=== PATIENT | female | born 1980 | race Two or more races ===

== ENCOUNTER 2022-06-19 10:10 | Inpatient (IN) | payer OTHER, SELFPAY ==
--- NOTE | ~2022-06-19 | FL_ITS ---
EXAMINATION: XR FLUOROSCOPY WITH IMAGES CLINICAL INFORMATION: Cystoscopy and right-sided ureteroscopy COMPARISON: CT abdomen/pelvis from 06/19/2022 TECHNIQUE: Fluoroscopy Time: 0.5 minutes. Cumulative Dose: 12.2 mGy. DAP: 0.212 mGym2. FL/FL guidance in OR FINDINGS AND IMPRESSION: This report is provided to document use of fluoroscopic imaging equipment during urologic procedures. The final images show deployment of a right ureteral stent.
--- NOTE | ~2022-06-19 | CT_ITS ---
EXAMINATION: CT ABDOMEN AND PELVIS WITHOUT CONTRAST CLINICAL INFORMATION: Severe right flank pain COMPARISON: None available. TECHNIQUE: Multidetector volumetric imaging was performed from the superior aspect of the liver through the pubic symphysis. Sagittal and coronal reformatted images were obtained on the technologist's workstation. This CT examination was performed using dose optimization techniques as appropriate, variously including the following: *Automated exposure control *Adjustment of mA and/or kV according to patient size (this includes techniques or standardized protocols for targeted exams where dose is matched to indication/reason for exam; i.e. extremities or head) *Use of iterative reconstruction technique DLP: 826 mGy-cm FINDINGS: LUNG BASES: The visualized lung bases are unremarkable. Heart normal size. No pleural or pericardial effusion. LIVER, GALLBLADDER, AND BILIARY TREE: There is diffuse fatty infiltration of the liver. Hepatomegaly is present with vertical span of 23 cm. No focal mass or intrahepatic bile duct dilatation is seen. Patient status post cholecystectomy. PANCREAS: Unremarkable. No mass or peripancreatic inflammatory change. SPLEEN: Unremarkable. ADRENAL GLANDS: Unremarkable. KIDNEYS AND URETERS: Right kidney: There is moderate hydronephrosis present with hydroureter down to the right distal ureter where there is a 9 mm calculus there is some periureteral fat stranding present. No significant perinephric stranding is noted. No focal mass. Left kidney: No hydronephrosis or hydroureter. No left renal calculi identified. No focal mass. No significant perinephric stranding. BLADDER: Unremarkable. GASTROINTESTINAL TRACT: No dilated loops of large or small bowel are evident. No free air or free fluid is seen. No pericolonic inflammatory change. The appendix appears unremarkable. ABDOMINAL WALL: No significant hernia is appreciated. LYMPH NODES: No lymphadenopathy appreciated. VASCULAR: Unremarkable. PELVIC VISCERA: Unremarkable. OSSEOUS STRUCTURES: No suspicious acute findings identified. CT/CT abdomen pelvis wo IV con IMPRESSION: Distal right ureteral 9 mm obstructing calculus with moderate right hydronephrosis and hydroureter. Diffuse fatty infiltration of the liver with hepatomegaly. Fleischner guidelines were followed.
[2022-06-19 10:38] VITALS: BP 166/74; PULSE 88; RESP 18; TEMP 36.4; O2SAT 96; BMI 36.6
[2022-06-19] MEDS: Ketorolac Tromethamine 30 MG/ML VIAL IVPUSH (11:02)
[2022-06-19] MEDS: Morphine Sulfate 4 MG/ML CARTRIDGE IVPUSH (11:02)
[2022-06-19] MEDS: 0.9 % Sodium Chloride 1,000 ML 999 ML IVCONT (11:02)
[2022-06-19] MEDS: ondansetron HCL 4 MG/2 ML VIAL IVPUSH (11:02)
--- NOTE | 2022-06-19 11:05 | PC.NURSE ---
20G IV placed right AC, medicated per provider for 10/10 pain, pt is having difficulty lying still due to pain, pt pending CT scan.
[2022-06-19 11:07] LABS: Basophils Absolute Auto 0.1 X10*3/uL (0.0-0.2); Basophils Percent Auto 0.6 % (0-2); Eosinophils Absolute Auto 0.1 X10*3/uL (0.0-0.4); Eosinophils Percent Auto 1.2 % (0-4); Hematocrit 42.9 % (37.0-47.0); Hemoglobin 14.3 g/dl (12.0-16.0); Imm Gran Abs Auto 0.05 X10*3/uL (0.00-0.03); Imm Gran Pct Auto 0.5 % (0.0-0.4); Lymphocytes Absolute Auto 5.2 X10*3/uL (1.2-4.9); Lymphocytes Percent Auto 48.1 % (20-40); MANUAL DIFF FLAG SCAN; Mean Corpuscular HGB Conc 33.3 g/dl (31.0-35.0); Mean Corpuscular Hemoglobin 29.4 pg (27.0-33.0); Mean Corpuscular Volume 88.3 fL (80.0-98.0); Mean Platelet Volume 10.3 fL (9.4-12.3); Monocytes Absolute Auto 0.7 X10*3/uL (0.1-1.2); Monocytes Percent Auto 6.3 % (2-11); Neutrophils Absolute Auto 4.7 x10*3/uL (2.0-8.3); Neutrophils Percent Auto 43.3 % (45-73); Platelet Count 272 X10*3/uL (160-400); Red Blood Count 4.86 X10*6/uL (4.20-5.50); Red Cell Distribution Width 12.3 % (11.0-16.0); SCAN SMEAR FLAG 1; White Blood Count 10.8 X10*3/uL (4.8-10.8)
--- NOTE | 2022-06-19 11:14 | ED_ITS ---
HPI - General Adult General Chief complaint: Back Pain/Injury Stated complaint: lower back pain/ abd pain Time Seen by Provider: 06/19/22 10:41 Source: patient Mode of arrival: ambulatory Limitations: no limitations History of Present Illness HPI narrative: Patient is a 42yo female presenting for suprapubic and lower back pain that began yesterday night. Patient stated that she was initially experiencing urinary frequency and urgency which made her think she may have a UTI so she increased her water intake. She stated that she woke up this morning with left lower back pain that intensified and shifted to right sided pain along with b/l suprapubic pain and pressure that radiates to her groin. Patient stated that she is still having urinary frequency and urgency but when she tries to pee, there is minimal urine. Patient is unsure if there is any blood in her urine because she is currently on her period. Veronika stated that the pain feels like I have to push out a baby . She denies possibility of because she has had a tubal ligation and has been abstinent for a year. Patient denies associated symptoms including fever, weakness, fatigue, dizziness, headache, chest pain, nausea, vomiting, diarrhea, urinary retention or incontinence. complaint: back/abdominal pain Onset (ago): day(s) (1) Location: back and abdomen Radiation: other (groin) Severity: severe Severity scale (1-10): 10 Quality: sharp Pain Consistency: constant Exacerbating factors: movement Associated symptoms: denies other symptoms Treatments prior to arrival: none Related Data Allergies Allergy/AdvReac Type Severity Reaction Status Date / Time No Known Allergies Allergy Verified 06/19/22 10:41 Review of Systems Review of Systems: Yes all other systems are reviewed and are negative [facility] Social History Social History Advance Directives: No Physical Exam ED Vital Signs: Vital Signs - 24 hr 06/19/22 10:38 Temperature 97.6 F Pulse Rate 88 Respiratory Rate 18 Blood Pressure 166/74 H Pulse Oximetry 96 Oxygen Delivery Method Room Air BMI result Body Mass Index 36.6 Appearance: Alert. Oriented X3. Appears very uncomfortable Head: normocephalic, atraumatic. Neck: Normal inspection. Neck supple. CVS: Normal heart rate and rhythm. Respiratory: No respiratory distress. Breath sounds normal. Abdomen: Soft but tender in RLQ and LLQ. +BS x4 : Right CVA tenderness to palpation. Bilateral suprapubic tenderness to palpation Skin: Skin warm and dry. Normal skin color. Normal skin turgor. No rashes. Extremities: No lower extremity edema. No joint swelling. Neuro/psych: Oriented X 3. No motor deficit. No sensory deficit. Normal speech and cognition. Course Reevaluation(s) Reevaluation #1: pain significantly improved per patient. CT showed 9mm distal ureteral stone. Dr. Abraham notified and will admit to do surgery tomorrow. Patient informed and will be NPO after midnight. Time: 13:35 Medications Administered Discontinued Medications Generic Name Dose Route Start Last Admin Trade Name Freq PRN Reason Stop Dose Admin Sodium Chloride 1,000 mls @ 999 mls/hr 06/19/22 10:45 06/19/22 11:02 Ns IVCONT 06/19/22 11:45 999 mls/hr .Q1H1M FADIA Administration Ketorolac Tromethamine 30 mg 06/19/22 10:44 06/19/22 11:02 Ketorolac Tromethamine 30 Mg/Ml Vial IVPUSH 06/19/22 10:45 30 mg ONCE ONE Administration Morphine Sulfate 4 mg 06/19/22 10:44 06/19/22 11:02 Morphine Sulfate 4 Mg/Ml Cartridge IVPUSH 06/19/22 10:45 4 mg ONCE ONE Administration Protocol Ondansetron HCl 4 mg 06/19/22 10:44 06/19/22 11:02 Ondansetron Hcl 4 Mg/2 Ml Vial IVPUSH 06/19/22 10:45 4 mg ONCE ONE Administration Medical Decision Making Medical Decision Making [facility] Narrative: Patient is a 42yo female presenting for right lower back pain and b/l suprapubic pain and pressure. Patient CT showed a 9mm distal right ureteral stone. Patient's labs showed no signs of infection. No fever or leukocytosis. Patient was given ketorolac, morphine, odansetron, and NS and endorsed significant symptom improvement. Given the size of the stone urology was consulted and will admit patient for lithotripsy tomorrow. Patient will be NPO after midnight. Patient's UA with 11- 20 WBC and small leukocyte esteraste which could be contamination from the blood but will cover with Ropcehin 1g IV x1 while awaiting urine culture. Dr. Abraham aware. Patient admitted for further management. Differential Diagnosis Differential Diagnoses: The differential diagnosis associated with the presentation includes Nephrolithiasis, Ureteral stone, Cystitis, UTI, Pyelonephritis, doubt Admission/Observation Consideration of admission/observation: Escalation of care including admiss ion/observation considered Consult Healthcare Provider Management of the patient was discussed with: Foot Tender (Dr. Abraham, urology) Lab Data MDM Lab Attestation statement: I reviewed the patient's lab results. 06/19/22 11:01 06/19/22 11:01 Labs: Lab Results 06/19/22 06/19/22 06/19/22 Range/Units 11:01 11:01 11:06 WBC 10.8 (4.8-10.8) X10*3/uL RBC 4.86 (4.20-5.50) X10*6/uL Hgb 14.3 (12.0-16.0) g/dl Hct 42.9 (37.0-47.0) % MCV 88.3 (80.0-98.0) fL MCH 29.4 (27.0-33.0) pg MCHC 33.3 (31.0-35.0) g/dl RDW 12.3 (11.0-16.0) % Plt Count 272 (160-400) X10*3/uL MPV 10.3 (9.4-12.3) fL Immature Gran % (Auto) 0.5 H (0.0-0.4) % Neut % (Auto) 43.3 L (45-73) % Lymph % (Auto) 48.1 H (20-40) % [place] % (Auto) 6.3 (2-11) % Eos % (Auto) 1.2 (0-4) % Baso % (Auto) 0.6 (0-2) % Lymph # (Auto) 5.2 H (1.2-4.9) X10*3/uL [place] # (Auto) 0.7 (0.1-1.2) X10*3/uL Eos # (Auto) 0.1 (0.0-0.4) X10*3/uL Baso # (Auto) 0.1 (0.0-0.2) X10*3/uL Abs Immat Gran (auto) 0.05 H (0.00-0.03) X10*3/uL Absolute Neuts (auto) 4.7 (2.0-8.3) x10*3/uL Absolute Nucleated RBC 0.000 (0.0-0.012) X10*3/uL Nucleated RBC % (auto) 0.0 (0.0-0.2) /100WBC Smear Tech's Comments VERIFIED Sodium 140 (135-145) mmol/L Potassium 4.5 (3.3-5.1) mmol/L Chloride 102 (96-108) mmol/L Carbon Dioxide 27 (22-29) mmol/L Anion Gap 16 (12-20) BUN 10 (9-16) mg/dL Creatinine 0.72 (0.5-1.4) mg/dL Estim Creat Clear Calc 116.6 Estimated GFR > 60 Random Glucose 147 H (60-115) mg/dL Calcium 9.3 (8.4-10.2) mg/dL Magnesium 1.8 (1.6-2.6) mg/dL Total Bilirubin 0.4 (0.0-1.0) mg/dL Direct Bilirubin 0.1 (0.0-0.5) mg/dL AST 51 H (5-31) U/L ALT 66 H (0-31) U/L Alkaline Phosphatase 88 (39-117) U/L Total Protein 7.5 (6.5-8.0) g/dL Albumin 4.0 (3.5-5.0) g/dL Urine Color Urine Appearance Urine pH (5.0-9.0) Ur Specific [place] (1.005-1.025) Urine Protein (Neg-Trace) mg/dL Urine Glucose (UA) (Negative) mg/dL Urine Ketones (Negative) mg/dL Urine Blood (Negative) Urine Nitrite (Negative) Ur Leukocyte Esterase (Negative) Urine RBC (0-2) /HPF Urine WBC (0-5) /HPF Ur Squamous Epith Cells (0-2) /HPF Urine Bacteria (None Seen) Hyaline Casts (0-2) /LPF COVID-19 (MICHELL) Negative (Negative) COVID-19 Clin Com See Note 06/19/22 Range/Units 11:06 WBC (4.8-10.8) X10*3/uL RBC (4.20-5.50) X10*6/uL Hgb (12.0-16.0) g/dl Hct (37.0-47.0) % MCV (80.0-98.0) fL MCH (27.0-33.0) pg MCHC (31.0-35.0) g/dl RDW (11.0-16.0) % Plt Count (160-400) X10*3/uL MPV (9.4-12.3) fL Immature Gran % (Auto) (0.0-0.4) % Neut % (Auto) (45-73) % Lymph % (Auto) (20-40) % [place] % (Auto) (2-11) % Eos % (Auto) (0-4) % Baso % (Auto) (0-2) % Lymph # (Auto) (1.2-4.9) X10*3/uL [place] # (Auto) (0.1-1.2) X10*3/uL Eos # (Auto) (0.0-0.4) X10*3/uL Baso # (Auto) (0.0-0.2) X10*3/uL Abs Immat Gran (auto) (0.00-0.03) X10*3/uL Absolute Neuts (auto) (2.0-8.3) x10*3/uL Absolute Nucleated RBC (0.0-0.012) X10*3/uL Nucleated RBC % (auto) (0.0-0.2) /100WBC Smear Tech's Comments Sodium (135-145) mmol/L Potassium (3.3-5.1) mmol/L Chloride (96-108) mmol/L Carbon Dioxide (22-29) mmol/L Anion Gap (12-20) BUN (9-16) mg/dL Creatinine (0.5-1.4) mg/dL Estim Creat Clear Calc Estimated GFR Random Glucose (60-115) mg/dL Calcium (8.4-10.2) mg/dL Magnesium (1.6-2.6) mg/dL Total Bilirubin (0.0-1.0) mg/dL Direct Bilirubin (0.0-0.5) mg/dL AST (5-31) U/L ALT (0-31) U/L Alkaline Phosphatase (39-117) U/L Total Protein (6.5-8.0) g/dL Albumin (3.5-5.0) g/dL Urine Color Yellow Urine Appearance Clear Urine pH 6.0 (5.0-9.0) Ur Specific [place] 1.020 (1.005-1.025) Urine Protein Trace (Neg-Trace) mg/dL Urine Glucose (UA) Negative (Negative) mg/dL Urine Ketones Negative (Negative) mg/dL Urine Blood Large (3+) H (Negative) Urine Nitrite Negative (Negative) Ur Leukocyte Esterase Small (1+) H (Negative) Urine RBC >20 H (0-2) /HPF Urine WBC 11-20 H (0-5) /HPF Ur Squamous Epith Cells 0-2 (0-2) /HPF Urine Bacteria Trace (None Seen) Hyaline Casts 0-2 (0-2) /LPF COVID-19 (MICHELL) (Negative) COVID-19 Clin Com Independent Interpretation I performed an independent interpretation of an: CT Scan Interpretation: I saw a large distal ureteral stone with right hydronephrosis and agree with radiology findings. Radiology Impression Discussion of test interpretation with radiology: I have reviewed the radiologist's reading. Radiologist Impression: CT/CT abdomen pelvis wo IV con IMPRESSION: Distal right ureteral 9 mm obstructing calculus with moderate right hydronephrosis and hydroureter. ? Diffuse fatty infiltration of the liver with hepatomegaly.? ? Fleischner guidelines were followed. Prescription Management I considered prescription management with: Pain Medication and Antibiotic Critical Care Time Critical Care Time Critical Care Time: Yes Total Critical Care Time: 36 Attestation: I have personally provided critical care time exclusive of time spent on separately billable procedures. Time includes review of lab data, radiology results, discussion with consultants, and monitoring for potential decompensation. Intervention performed as documented. Discharge Plan Discharge Clinical Impression: Right distal ureteral calculus Patient Disposition: Admitted As Inpatient
[2022-06-19 11:17] LABS: Appearance Urine Clear; Color Urine Yellow; Glucose Urine UA Negative (Negative); Leukocyte Esterase Urine Small (1+) (Negative); Nitrite Urine Negative (Negative); UMIC TRIGGER UACC YES; Urine Blood Large (3+) (Negative); Urine Ketones Negative (Negative); Urine Protein Trace mg/dL (Neg-Trace)
[2022-06-19 11:19] LABS: Bacteria Urine Trace (None Seen); Hyaline Casts Urine 0-2 /LPF (0-2); RBC Urine >20 /HPF (0-2); Squamous Epithelial Cell Urine 0-2 /HPF (0-2); UACC Culture Trigger YES
[2022-06-19 11:25] LABS: Alanine Aminotransferase 66 U/L (0-31); Alkaline Phosphatase 88 U/L (39-117); Anion Gap 16 (12-20); Aspartate Amino Transferase 51 U/L (5-31); Bilirubin Direct 0.1 mg/dL (0.0-0.5); Bilirubin Total 0.4 mg/dL (0.0-1.0); Blood Urea Nitrogen 10 mg/dL (9-16); Calcium 9.3 mg/dL (8.4-10.2); Carbon Dioxide 27 mmol/L (22-29); Chloride 102 mmol/L (96-108); Creatinine Clr Calc Pharmacy 116.6; Estimated Glomerular Filt Rate > 60; Glucose Random 147 mg/dL (60-115); Magnesium 1.8 mg/dL (1.6-2.6); Potassium 4.5 mmol/L (3.3-5.1); Sodium 140 mmol/L (135-145); Total Protein 7.5 g/dL (6.5-8.0)
[2022-06-19 11:27] LABS: SLIDE REVIEW VERIFIED
[2022-06-19 11:31] LABS: COVID-19 Test Negative (Negative); IDNOW Serial# 55D5AD1C
--- NOTE | 2022-06-19 13:44 | P.HPGS_ITS ---
History of Present Illness History of Present Illness Date of Service: 06/20/22 Chief complaint: Left Ureteral Stone Left Hydronephrosis Narrative: Billy Quezada is a 42 year old female presenting for suprapubic and lower back pain that began yesterday night. Patient stated that she was initially experiencing urinary frequency and urgency which made her think she may have a UTI so she increased her water intake. She stated that she woke up this morning with left lower back pain that intensified and shifted to right sided pain along with b/l suprapubic pain and pressure that radiates to her groin. Patient stated that she is still having urinary frequency and urgency but when she tries to pee, there is minimal urine. Patient is unsure if there is any blood in her urine because she is currently on her period. Veronika stated that the pain feels like I have to push out a baby . She denies possibility of because she has had a tubal ligation and has been abstinent for a year. Patient denies associated symptoms including fever, weakness, fatigue, dizziness, headache, chest pain, nausea, vomiting, diarrhea, urinary retention or incontinence. Review of Systems Review of Systems: 10 point ROS negative other than stated in HPI [facility] Past Medical History Medical History (Updated 06/20/22 @ 06:37 by Kumar Duarte MD) Seizure Surgical History Surgical History (Updated 06/19/22 @ 18:00 by Erica Ragsdale RN) History of cholecystectomy Tubal ligation status Social History Social History Household Members: Other Household Members Other:: 3 children Housing: House Do you presently have visiting nurse or other home services: No Alcohol intake: never Patient Tobacco Use Status: Former Tobacco user Quit Date: 1.5 year ago Years Smoked: 30 Smoked in Last 30 Days: No Use of substances other than those prescribed or required for medical reasons: No Currently Displaying Signs/Symptoms of Drug Intoxication Withdrawal: No Have you been hit, kicked, punched, or otherwise hurt by someone within the past year? If so, by whom?: No Do you feel safe in your current relationship?: No Current Relationship Is there a partner from a previous relationship who is making you feel unsafe now?: No Are you made to feel afraid or neglected: No Christian Healthcare Practices: mormon Advance Directives: No Do you have thoughts of harming others: None Do you have a plan to hurt others: No Plan Recently lost weight without trying: No Nutrition Risks: No Nutritional Risk Patient : No : No Poor oral hygiene: No Meds Allergies Allergy/AdvReac Type Severity Reaction Status Date / Time No Known Allergies Allergy Verified 06/19/22 10:41 Home Medications Medication Instructions Recorded Confirmed Last Taken Type No Known Home Meds 06/19/22 06/19/22 Unknown History Physical Exam Vital Signs: Vital Signs: Last Vital Signs Temp 97.6 F 06/19/22 10:38 Pulse 88 06/19/22 10:38 Resp 18 06/19/22 10:38 BP 166/74 H 06/19/22 10:38 Pulse Ox 96 06/19/22 10:38 O2 Del Method Room Air 06/19/22 10:38 BMI result Body Mass Index 36.6 Const: General: cooperative and no acute distress Orientation/consciousness: patient oriented x3 HEENT: Head: Yes normal to inspection, Yes normocephalic and Yes atraumatic Eyes: Conjunctivae: conjunctivae normal Neck: Neck: Yes normal visual inspection and Yes trachea midline Chest: Chest palpation & inspection: normal inspection of the chest Resp: Effort & Inspection: normal respiratory effort Cardio: Rate: regular rate GI: Inspection: Yes normal to inspection Palpation (GI): Soft to palpation : General: Yes CVA tenderness (Right) Back/Spine/Pelvis: Back: CVA tenderness (Right) Skin: General skin exam: no rashes or lesions noted Neuro: General: patient oriented x3 Extrem: General: No edema Psych: Appearance: grossly normal Results Results Labs: Short CBC 06/19/22 Range/Units 11:01 WBC 10.8 (4.8-10.8) X10*3/uL Hgb 14.3 (12.0-16.0) g/dl Hct 42.9 (37.0-47.0) % Plt Count 272 (160-400) X10*3/uL BMP 06/19/22 11:01 Sodium 140 Potassium 4.5 Chloride 102 Carbon Dioxide 27 BUN 10 Creatinine 0.72 Calcium 9.3 Liver Function 06/19/22 Range/Units 11:01 Total Bilirubin 0.4 (0.0-1.0) mg/dL Direct Bilirubin 0.1 (0.0-0.5) mg/dL AST 51 H (5-31) U/L ALT 66 H (0-31) U/L Alkaline Phosphatase 88 (39-117) U/L Albumin 4.0 (3.5-5.0) g/dL Urine 06/19/22 Range/Units 11:06 Urine Color Yellow Urine Appearance Clear Urine pH 6.0 (5.0-9.0) Ur Specific [place] 1.020 (1.005-1.025) Urine Protein Trace (Neg-Trace) mg/dL Urine Glucose (UA) Negative (Negative) mg/dL Abdomen CT scan report/results: report reviewed and image reviewed CT scan - pelvis: report reviewed and image reviewed Additional studies: Date of Service: 06/19/22 EXAMINATION: CT ABDOMEN AND PELVIS WITHOUT CONTRAST? CLINICAL INFORMATION: Severe right flank pain? COMPARISON: None available.? TECHNIQUE: Multidetector volumetric imaging was performed from the superior aspect of the liver through the pubic symphysis. Sagittal and coronal reformatted images were obtained on the technologist's workstation.? This CT examination was performed using dose optimization techniques as appropriate, variously including the following: *Automated exposure control *Adjustment of mA and/or kV according to patient size (this includes techniques or standardized protocols for targeted exams where dose is matched to indication/reason for exam; i.e. extremities or head) *Use of iterative reconstruction technique DLP: 826 mGy-cm FINDINGS: LUNG BASES: The visualized lung bases are unremarkable. Heart normal size. No pleural or pericardial effusion. LIVER, GALLBLADDER, AND BILIARY TREE: There is diffuse fatty infiltration of the liver. Hepatomegaly is present with vertical span of 23 cm. No focal mass or intrahepatic bile duct dilatation is seen. Patient status post cholecystectomy.? PANCREAS: Unremarkable. No mass or peripancreatic inflammatory change. SPLEEN: Unremarkable.? ADRENAL GLANDS: Unremarkable.? KIDNEYS AND URETERS: Right kidney: There is moderate hydronephrosis present with hydroureter down to the right distal ureter where there is a 9 mm calculus there is some periureteral fat stranding present. No significant perinephric stranding is noted. No focal mass.? Left kidney: No hydronephrosis or hydroureter. No left renal calculi identified. No focal mass. No significant perinephric stranding. BLADDER: Unremarkable.? GASTROINTESTINAL TRACT: No dilated loops of large or small bowel are evident. No free air or free fluid is seen. No pericolonic inflammatory change. The appendix appears unremarkable.? ABDOMINAL WALL: No significant hernia is appreciated.? LYMPH NODES: No lymphadenopathy appreciated. VASCULAR: Unremarkable. PELVIC VISCERA: Unremarkable.? OSSEOUS STRUCTURES: No suspicious acute findings identified.? IMPRESSION: Distal right ureteral 9 mm obstructing calculus with moderate right hydronephrosis and hydroureter.? Diffuse fatty infiltration of the liver with hepatomegaly.? Assessment and Plan (1) Right distal ureteral calculus: Status: Acute (2) Hydronephrosis: Status: Acute Plan for Cystoscopy, Right ureteroscopy, laser lithotripsy, possible ureteral stent. Risks discussed included but not limited to, possible need to repeat procedure if stone is not completely fragmented, Irritative voiding symptoms, bladder spasms, urgency, blood in urine. Time Spent With Patient Time: Total time managing care of this patient today ____ minutes. Quality Stroke Does the patient have a stroke diagnosis?: No VTE Prior VTE?: No VTE Risk Level:: Surgical - low VTE Device Contraindication: Treatment Not Indicated VTE Drug Contraindication: Treatment Not Indicated Procedures Date of Service Date of Service: 06/19/22
[2022-06-19] MEDS: cefTRIAXone sodium 1 GM in 0.9 % Sodium Chloride 50 ML IV (14:36)
[2022-06-19 14:51] LABS: UPreg QC Valid YES; Urine Pregnancy NEGATIVE (NEGATIVE)
[2022-06-19] MEDS: HYDROmorphone HCl 1 MG/ML SYRINGE 0.5 MG IVPUSH ×2 (15:10→20:25)
[2022-06-19] MEDS: Sodium Chloride 0.45 % 1,000 ML 100 ML IVCONT (15:31)
--- NOTE | 2022-06-19 15:35 | PHA.MEDREC ---
Pharmacy Consult ? Medication Reconciliation Pharmacy has completed the medication reconciliation. Patient reports no medications at home. Nicole Bennett, CarolD
[2022-06-19] MEDS: 0.9 % Sodium Chloride Flush 3 ML SYRINGE IVFLUSH (15:42)
[2022-06-19 15:53] VITALS: BP 122/64; PULSE 85; RESP 16; TEMP 36.8; O2SAT 97
--- NOTE | 2022-06-19 15:56 | PC.NURSE ---
pt medicated for 7/10 pain- 0.45% NS infusing per order, pt belongings list completed. vss wctm
--- NOTE | 2022-06-19 15:59 | PC.NURSE ---
attempted to given report via [place] at 1423, 2nd attempt made via phone at 1552 no answer/disconnected
[2022-06-19 16:33] VITALS: BP 125/68; PULSE 92; RESP 18; TEMP 36.6; O2SAT 94
[2022-06-19] MEDS: Ketorolac Tromethamine 15 MG/ML VIAL IVPUSH (18:09)
[2022-06-19 23:41] VITALS: BP 135/74; PULSE 100; RESP 16; TEMP 36.7; O2SAT 96
[2022-06-20] VITALS (11 sets, daily range): BP systolic 95–149; BP diastolic 52–95; PULSE 77–110; RESP 16–22; TEMP 36.4–37.1; O2SAT 95–98; BMI 36.6
[2022-06-20] MEDS: HYDROmorphone HCl 1 MG/ML SYRINGE 0.5 MG IVPUSH ×5 (00:18→23:46)
[2022-06-20] MEDS: Sodium Chloride 0.45 % 1,000 ML 100 ML IVCONT ×3 (01:57→20:25)
[2022-06-20] MEDS: Ketorolac Tromethamine 15 MG/ML VIAL IVPUSH ×2 (03:04→19:00)
--- NOTE | 2022-06-20 09:23 | MHC.CM.PN ---
CM MET WITH PT AT BEDSIDE. PT LIVES IN AN APT WITH ADULT CHILDREN. INDEPENDENT AT BASELINE. NO HCP BUT WILLING TO COMPLETE ONE. NO COVID VAX NO PCP BUT HAS UPCOMING NEW PT APPT AT A [facility]. DP: HOME WITH NO SERVICES ANTICIPATED. PT HAS CAR IN LOT BUT FAMILY CAN TRANSPORT IF NEEDED. CM WILL CONTINUE TO FOLLOW.
[2022-06-20] MEDS: ondansetron HCL 4 MG/2 ML VIAL IVPUSH (11:48)
--- NOTE | 2022-06-20 14:17 | P.CONAN_ITS ---
HPI - Anesthesia Eval Consult details Narrative: forcysto PMFSH Active Problems Active Problems: All Active Problems (Updated 06/20/22 @ 06:37 by Kumar Duarte MD) Hydronephrosis (Acute) [id number] (Acute) Right distal ureteral calculus (Acute) Past Medical History Medical History (Updated 06/20/22 @ 06:37 by Kumar Duarte MD) Seizure Family History Family history of problems with anesthesia: No Surgical History Surgical History (Updated 06/19/22 @ 18:00 by Erica Ragsdale RN) History of cholecystectomy Tubal ligation status History of Problems with Anesthesia: No Social History Social History Household Members: Other Household Members Other:: 3 children Housing: House Do you presently have visiting nurse or other home services: No Alcohol intake: never Patient Tobacco Use Status: Former Tobacco user Quit Date: 2021 Smoked: 30 Smoked in Last 30 Days: No Second Hand Smoke Exposure: No Use of substances other than those prescribed or required for medical reasons: No Currently Displaying Signs/Symptoms of Drug Intoxication Withdrawal: No Have you been hit, kicked, punched, or otherwise hurt by someone within the past year? If so, by whom?: No Do you feel safe in your current relationship?: No Current Relationship Is there a partner from a previous relationship who is making you feel unsafe now?: No Are you made to feel afraid or neglected: No [facility] Practices: religious Are you DNR?: No Advance Directives: No Do you have thoughts of harming others: None Do you have a plan to hurt others: No Plan Recently lost weight without trying: No Nutrition Risks: No Nutritional Risk Patient : No : No Poor oral hygiene: No service: No Current occupational status: unemployed Meds Allergies Allergy/AdvReac Type Severity Reaction Status Date / Time No Known Allergies Allergy Verified 06/19/22 10:41 Active Medications: Current Medications Hydromorphone HCl (Hydromorphone Hcl 1 Mg/Ml Syringe) 0.5 mg IVPUSH Q4H PRN; Protocol PRN Reason: Pain, Severe (Pain Scale 7-10) Last Admin: 06/20/22 11:43 Dose: 0.5 mg Sodium Chloride (Sodium Chloride 0.45 %) 1,000 mls @ 100 mls/hr IVCONT .Q10H [facility] Last Admin: 06/20/22 11:28 Dose: 100 mls/hr Ketorolac Tromethamine (Ketorolac Tromethamine 15 Mg/Ml Vial) 15 mg IVPUSH Q8H [facility] Last Admin: 06/20/22 11:36 Dose: Not Given Ondansetron HCl (Ondansetron Hcl 4 Mg/2 Ml Vial) 4 mg IVPUSH Q6H PRN PRN Reason: Nausea Last Admin: 06/20/22 11:48 Dose: 4 mg Sodium Chloride (0.9 % Sodium Chloride Flush 3 Ml Syringe) 3 ml IVFLUSH QSHIFT [facility] Last Admin: 06/20/22 10:46 Dose: Not Given Home Medications Medication Instructions Recorded Confirmed Last Taken Type No Known Home Meds 06/19/22 06/19/22 Unknown History Exam Exam Date and Time: June 20, 2022 1417 Height,Weight and Vital Signs: Height 5 ft 5 in Weight 99.79 kg Last Vital Signs Temp 98.2 F 06/20/22 13:32 Pulse 84 06/20/22 13:32 Resp 18 06/20/22 13:32 BP 143/88 H 06/20/22 13:32 Pulse Ox 97 06/20/22 13:32 O2 Del Method Room Air 06/20/22 13:32 Pertinent Lab Results Pertinent Lab Results: Laboratory Tests 06/19/22 06/19/22 06/19/22 11:01 11:01 11:06 WBC 10.8 RBC 4.86 Hgb 14.3 Hct 42.9 MCV 88.3 MCH 29.4 MCHC 33.3 RDW 12.3 Plt Count 272 MPV 10.3 Immature Gran % (Auto) 0.5 H Neut % (Auto) 43.3 L Lymph % (Auto) 48.1 H Wallace % (Auto) 6.3 Eos % (Auto) 1.2 Baso % (Auto) 0.6 Lymph # (Auto) 5.2 H Wallace # (Auto) 0.7 Eos # (Auto) 0.1 Baso # (Auto) 0.1 Abs Immat Gran (auto) 0.05 H Absolute Neuts (auto) 4.7 Absolute Nucleated RBC 0.000 Nucleated RBC % (auto) 0.0 Smear Tech's Comments VERIFIED Sodium 140 Potassium 4.5 Chloride 102 Carbon Dioxide 27 Anion Gap 16 BUN 10 Creatinine 0.72 Estim Creat Clear Calc 116.6 Estimated GFR > 60 Random Glucose 147 H Calcium 9.3 Magnesium 1.8 Total Bilirubin 0.4 Direct Bilirubin 0.1 AST 51 H ALT 66 H Alkaline Phosphatase 88 Total Protein 7.5 Albumin 4.0 Urine Color Urine Appearance Urine pH Ur Specific [place] Urine Protein Urine Glucose (UA) Urine Ketones Urine Blood Urine Nitrite Ur Leukocyte Esterase Urine RBC Urine WBC Ur Squamous Epith Cells Urine Bacteria Hyaline Casts Urine Test COVID-19 (MICHELL) Negative COVID-19 [employer] Com See Note 06/19/22 06/19/22 11:06 14:38 WBC RBC Hgb Hct MCV MCH MCHC RDW Plt Count MPV Immature Gran % (Auto) Neut % (Auto) Lymph % (Auto) Wallace % (Auto) Eos % (Auto) Baso % (Auto) Lymph # (Auto) Wallace # (Auto) Eos # (Auto) Baso # (Auto) Abs Immat Gran (auto) Absolute Neuts (auto) Absolute Nucleated RBC Nucleated RBC % (auto) Smear Tech's Comments Sodium Potassium Chloride Carbon Dioxide Anion Gap BUN Creatinine Estim Creat Clear Calc Estimated GFR Random Glucose Calcium Magnesium Total Bilirubin Direct Bilirubin AST ALT Alkaline Phosphatase Total Protein Albumin Urine Color Yellow Urine Appearance Clear Urine pH 6.0 Ur Specific [place] 1.020 Urine Protein Trace Urine Glucose (UA) Negative Urine Ketones Negative Urine Blood Large (3+) H Urine Nitrite Negative Ur Leukocyte Esterase Small (1+) H Urine RBC >20 H Urine WBC 11-20 H Ur Squamous Epith Cells 0-2 Urine Bacteria Trace Hyaline Casts 0-2 Urine Test NEGATIVE COVID-19 (MICHELL) COVID-19 Clin Com Airway Mallampati Class: II TM Dist: >3cm Neck ROM: Full Heart: rrr Lungs: cta Assessment and Plan Assessment Anesthesia Assessment: Anesthesia Plan Discussed and Chart Reviewed Final Anesthetic Review Family History of Problems with Anesthesia: No History of Problems with Anesthesia: No ASA Class: II Final Preanesthetic Review: No Changes in Pt Med Stat, Meds/Allgs Chart Reviewed, Consent Obtained/Reviewed and Anes Risks/Benef Reviewed Patient Risk: Intermediate Procedure Risk: Intermediate Anesthetic Plan Anesthetic Plan: GA Disposition: Standard PACU
--- NOTE | 2022-06-20 14:31 | MHC.SHP ---
Pre-Procedural Eval Section A Date of Service: 06/20/22 The patient is an INPATIENT: Yes The History & Physical has been completed within 30 days and I have reviewed it.: Yes Section B Chief Complaint: Right Ureteral Stone Left Hydronephrosis Allergies: Allergies Allergy/AdvReac Type Severity Reaction Status Date / Time No Known Allergies Allergy Verified 06/19/22 10:41 Plan Diagnosis/Plan: Unchanged I have reviewed the history and physical and performed a pertinent physical examination on my patient. No changes have occurred unless specified. Plan for Cystoscopy, Right ureteroscopy, possible laser lithotripsy, possible ureteral stent. Risks discussed included but not limited to, possible need to repeat procedure if stone is not completely fragmented, Irritative voiding symptoms, bladder spasms, urgency, blood in urine. Time Spent With Patient Time: Total time managing care of this patient today ____ minutes.
--- NOTE | 2022-06-20 14:32 | PC.NURSE ---
dr. lima aware that order needs to be corrected to right side and procedure indicated on report.
--- NOTE | 2022-06-20 16:17 | P.OP_ITS ---
Operative Note Operative Note Date of Service: 06/20/22 Narrative: PreOperative Diagnosis:?? Right ureteral stone, right hydronephrosis Post Operative Diagnosis:?? Right ureteral stone, impacted, right hydronephrosis Procedure: - Cystoscopy, right retrograde, right ureteroscopy laser lithotripsy stent insertion, 6 [place] by 26 cm Surgeon:?Dr Kumar Duarte Anesthesia:? General Indications for procedure: Procedure: After informed consent was verified the patient was brought to the operating placed on the OR table in supine position.? General Anesthesia was administered per protocol.? The patient was placed in lithotomy position, prepped and draped in the usual sterile fashion.? Safety pause time-out and side of surgery confirmed.? Antibiotics confirmed. 2% lidocaine jelly 10 mL was passed transurethrally. A 22 [place] cystoscope was inserted transurethrally, The bladder was visualized.? Both ureteric orifices were in normal position. An open-ended ureteral catheter was passed into the right ureteral orifice and a retrograde examination was performed. There was a filling defect in the distal ureter and dilatation of the proximal ureter. A guidewire was passed through the ureteral catheter into the kidney. The balloon dilator size 12 fr x 4 cm was passed over the guide -wire the balloon was inflated to 8 mmHg and the intramural ureter was dilated for 45 seconds. The balloon was deflated and removed. After removing the balloon dilator a 2nd guidewire was then passed into the kidney to use as a safety. The cystoscope was removed, leaving both guidewires in place. One guidewire was used as the safety and was attached to the draping. The semi rigid ureteroscope was passed over one of the guidewires to the level of the stone in the ureter. One guidewire was then removed. Laser lithotripsy of the stone was done using the 365 fiber. There was good fragmentation of the stone. The 0 degree basket was passed through the ureteroscope, to remove a fragment to send for analysis. The ureteroscope was removed. The cystoscope was passed over the safety guidewire. A? 6 [place] by 26 cm stent was placed into the ureter and renal pelvis under a combination of fluoroscopy and direct visualization. It was noted that the stone was impacted along the mucosal wall. I want the ureteral stent to stay in at least 3 weeks. The bladder was emptied.? The rigid cystoscope was removed. ? The patient tolerated the procedure well and was brought to the recovery room in stable condition. Complications: None Drains: Ureteral stent as dictated above
[2022-06-20] MEDS: 0.9 % Sodium Chloride Flush 3 ML SYRINGE IVFLUSH (17:27)
[2022-06-20] MEDS: oxyCODONE HCl Immed Release 5 MG TABLET PO (20:30)
--- NOTE | 2022-06-20 21:50 | PC.NURSE ---
Frequent urination,bladder scanned after void 0 ml
[2022-06-21] MEDS: Ketorolac Tromethamine 15 MG/ML VIAL IVPUSH ×2 (03:00→11:21)
[2022-06-21] MEDS: Sodium Chloride 0.45 % 1,000 ML 100 ML IVCONT (06:49)
[2022-06-21] MEDS: HYDROmorphone HCl 1 MG/ML SYRINGE 0.5 MG IVPUSH ×2 (06:55→11:20)
[2022-06-21 07:35] VITALS: BP 120/63; PULSE 72; RESP 18; TEMP 36.7; O2SAT 97
[2022-06-21] MEDS: 0.9 % Sodium Chloride Flush 3 ML SYRINGE IVFLUSH (07:57)
--- NOTE | 2022-06-21 08:56 | HO.POSTANES ---
Post Anesthesia Evaluation Post Anesthesia Evaluation Vital Signs: Vital Signs Temp Pulse Resp BP Pulse Ox O2 Del Method 06/21/22 07:35 98.0 F 72 18 120/63 97 Room Air 06/20/22 23:42 97.8 F 110 H 18 141/95 H 96 Room Air Anesthesia: General LMA Mental Status: Awake Pain Control: Satisfactory Nausea/Vomiting: None Hydration: Adequate Anesthesia-Related Issues: No Anes. Related Issues
--- NOTE | 2022-06-21 11:54 | PM.DS ---
DS: Providers Provider Date of Service: 06/21/22 Date of admission: 06/19/22 13:33 Primary care physician: Unknown Physician DS: Diagnosis Discharge Diagnosis (1) Right distal ureteral calculus: Status: Acute (2) Hydronephrosis: Status: Acute DS: Summary Hospital Course Hospital Course: Admitted to hospital Underwent ureteroscopy with procedure in stent placement Resolution of pain Status at Discharge Functional status at discharge: independent ambulation Overall status at discharge: patient is back to baseline Time Spent with Patient Time attestation: Total time managing care of this patient today ____ minutes. Discharge coordination time: Less than 30 minutes Quality: Safe Use of Opioids Does Pt have an Active Cancer Diagnosis on the Problem List?: No Quality: Stroke Does the patient have a stroke diagnosis?: No Physical Exam Vital Signs: Vital Signs: Last Vital Signs Temp 98.0 F 06/21/22 07:35 Pulse 72 06/21/22 07:35 Resp 18 06/21/22 07:35 BP 120/63 06/21/22 07:35 Pulse Ox 97 06/21/22 07:35 O2 Del Method Room Air 06/21/22 07:35 O2 Flow Rate 3 06/20/22 17:36 BMI result Body Mass Index 36.6 Const: General: cooperative, healthy appearing, comfortable and no acute distress Orientation/consciousness: patient oriented x3 HEENT: Face and sinus: Yes normal facial exam Mouth: moist mucous membranes Neck: Neck: Yes normal visual inspection, Yes full ROM and Yes trachea midline Chest: Chest palpation & inspection: normal inspection of the chest Resp: Effort & Inspection: normal respiratory effort, able to speak in complete sentences and no respiratory distress GI: Inspection: Yes normal to inspection Back/Spine/Pelvis: Cervical Spine: normal cervical lordosis Thoracic/Lumbar Spine: thoracic and lumbar spine normal to inspection Skin: General skin exam: no rashes or lesions noted Neuro: General: patient oriented x3, tone normal and moves all extremities Extrem: General: Yes normal to inspection and Yes capillary refill normal DS: Data Data Completed and Pending Pending studies at discharge: Pending at discharge 06/20/22 15:50 Surgical [PTH] Routine Labs on day of discharge: Preliminary micro results at discharge 06/19/22 Unknown Urine Culture - Preliminary Urine clean catch - Urine zuñiga top Gram negative arlin Imaging CT scan - abdomen: Radiologist's impression: ITS Impressions Abdomen/Pelvis CT 06/19/22 11:33 IMPRESSION: Distal right ureteral 9 mm obstructing calculus with moderate right hydronephrosis and hydroureter. Diffuse fatty infiltration of the liver with hepatomegaly. Fleischner guidelines were followed. Discharge Plan Discharge Anticipated Discharge Date/Time: 06/21/22 11:50 Patient Disposition: Home, Self-Care Discharge Diagnosis: ureteric stone with pain Referrals: Physician,Unknown J [Primary Care Provider] - 1 Week Discharge Medications: New tramadol 50 mg tablet 50 mg PO Q6H PRN (Reason: pain (scale score 1-3)) Qty: 8 0RF tamsulosin 0.4 mg capsule 0.4 mg PO BEDTIME 14 Days Qty: 14 0RF phenazopyridine [Pyridium] 100 mg tablet 100 mg PO TID PRN (Reason: Spasm) 4 Days Qty: 12 0RF Discharge Orders: Discharge Order (Routine); Ordered 06/21/22 Ordered By: Alberto Mayen Diet: Advance to usual diet Activity on Discharge: As tolerated Stand Alone Forms: Patient Portal Discharge page Care Plan Goals: stone Health Concerns: stone Plan of Treatment: stone Assessment: stone Patient Instructions: Ureteroscopy (DC)
--- NOTE | 2022-06-21 12:36 | MHC.CM.PN ---
pt dcd home no skilled servceis orderd by
[2022-07-01 21:43] LABS: Stone Source URETERAL STONE
== END 2022-06-21 14:05 | disposition home or self-care (01) | DRG 446 ==
LOC: HO.ED 13:38 → HO.EDOVER 13:51 → HO.S3 14:04
PROVIDERS: Anesthesiology; Physician Assistant; Admitting Provider Urology; Emergency Provider Emergency Medicine; Visit Provider Urology
PROC: 0TC68ZZ Extirpation of Matter from Right Ureter, Via Natural or Artificial Opening Endoscopic (ICD-10-PCS; principal; 2022-06-20 14:00)
DX: N13.2 Hydronephrosis with renal and ureteral calculous obstruction (principal); Z20.822 Contact with and (suspected) exposure to COVID-19; Z87.891 Personal history of nicotine dependence
CPT/HCPCS: 74176; 80048; 80076; 81001; 81025; 82365; 83735; 85025; 87086; 87088; 87186; 87635; 88300; 99285; C1726; C1758; C1769; C2617; J0690; J0696; J1100; J1170; J1885; J2270; J2405; J3010; Q9967

== ENCOUNTER → 2022-07-14 10:52 | Outpatient (BNVA) | payer OTHER, SELFPAY | PROVIDERS: Visit Provider Urology | DX: Z48.816 Encounter for surgical aftercare following surgery on the genitourinary system (principal) | CPT/HCPCS: 52000; 52310 ==